=== PATIENT | male | born 1930 | race Caucasian/White ===

== ENCOUNTER → 2020-02-24 | Outpatient (CLI) | payer MEDICARE, OTHER ==
[~2020-02-24] MED LIST: ALLOPURINOL 10100 M3 PO; ASA81BEC PO; COQ-1030 MG PO; ELIQUIS5 MG PO; FUROSEMIDE 20 M20 M1 PO; HYDROMORPHONE PO; IRON PO; KLOR-CON M2020 MEQ PO; LIPITOR20 MG PO; MIRALAX17 G1 PO; NEURONTIN 400M400 M2 PO; PRESERVISION T1 EACH PO; PRILOSEC OTC20 MG PO; SINGULAIR 10 MG10 MG PO; SYNTHROID100 MC1 PO; TOPROL XL50 MG PO; VITAMIN D3 PO; ZANAFLEX4 M2 PO
== END ==
LOC: M.PC 09:30
PROVIDERS: ATTEND Physical Medicine & Rehabilitation
DX: M54.5 Low back pain (principal); M25.552 Pain in left hip; M62.81 Muscle weakness (generalized); I48.91 Unspecified atrial fibrillation